=== PATIENT | male | born 1960 | race Caucasian/White ===

== ENCOUNTER 2017-03-30 06:11 | Emergency (ER) | payer BC ==
[~2017-03-30] VITALS: Ht 185.4 cm; Wt 104.9 kg
[~2017-03-30 06:11] MED LIST: ACET-1256 PO; GABA-112 PO; IBUP-1050 PO; NAPR1TAB9 PO
[2017-03-30 06:14] VITALS: TEMP 36.6; Ht 185.4 cm; Wt 104.9 kg
[2017-03-30] MEDS ORDERED: CYCL10TA6 PO (06:32)
[2017-03-30] MEDS ORDERED: PRED10PA4 PO (06:32)
[2017-03-30] MEDS ORDERED: MoRPHine SULFATE 10 MG/ML CARP/VIAL IV PRN (06:45)
[2017-03-30] MEDS ORDERED: ONDANSETRON INJ 2 MG/ML 2 ML VIAL IV PRN (06:45)
--- NOTE | 2017-03-30 06:48 | EMERGENCY ROOM VISIT NOTE ---
History Report prepared by Edson: Maricarmen Law Under the Supervision of: Dr. Parmjit Suarez M.D. First contact with patient: 06:30 Chief Complaint: ARM PAIN Stated Complaint: LT ARM PAIN, BODY ACHES History of Present Illness The patient is a 57 year old male who presents to the Emergency Room with complaints of left shoulder pain that began several days ago. He currently rates his discomfort as an 8/10 in severity. The patient reports that his left shoulder pain radiates into the left side of his upper back. He states that he was seen by his PCP yesterday and was started on Prednisone and Flexeril that did not alleviate his symptoms. The patient states that he could not get comfortable and sleep last evening. He describes his pain as a sharp pain. The patient states that last evening he began noticing left hand tingling. He states that his pain is worsened with movement. The patient additionally reports neck pain, noting that he has arthritis in his neck. He states that he had a neck injury in his 20s. The patient states that he did go fishing last week and casts with his left shoulder. 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 The patient's states that the patient was hiking last Sunday and states that after he fell he heard a pop. She states that since then the patient has been limping and has noticed right calf swelling. The patient denies any fever, chills, lightheadedness, dizziness , chest pain, or shortness of breath. Source of History: patient, spouse/significant other () Onset: several days ago Position: shoulder (left) Symptom Intensity: 8/10 Quality: sharp Timing: worsening (progressively), other (persistent) Modifying Factors (Worsening): movement Associated Symptoms: + neck pain, + back pain, No fevers, No chills, No chest pain, No SOB Review of Systems All systems have been listed, reviewed, and are negative other than those previously mentioned. Please see Additional Medical History Sheet. Past Medical & Surgical Medical Problems: (1) Arthritis (2) H/O multiple allergies Surgical Problems: (1) S/P tonsillectomy Family History Cancer Heart disease Hypertension Social History Smoking Status: Never Smoker Smokeless Tobacco Use: No Alcohol Use: occasionally Marital Status: single Housing Status: lives with significant other Occupation Status: employed Current/Historical Medications Scheduled Cyclobenzaprine Hcl (Flexeril), 10 MG PO BID Prednisone (Prednisone), Unknown Dose PO DIRECTED Scheduled PRN Naproxen (Aleve), 220 MG PO DIRECTED PRN for Pain Oxycodone/Acetaminophen 5MG/325MG (Percocet 5MG/325MG), 1-2 TABLETS PO Q4H PRN for Pain Allergies Coded Allergies: Aspirin (Verified Allergy, Unknown, 03/30/17) Penicillins (Verified Allergy, Unknown, 03/30/17) Physical Exam Vital Signs Date Time Temp Pulse Resp B/P (MAP) Pulse Ox O2 Delivery O2 Flow Rate FiO2 03/30/17 09:34 61 132/82 97 03/30/17 07:48 67 149/89 97 Room Air 03/30/17 06:14 36.6 103 20 143/92 97 Room Air Physical Exam GENERAL: Patient awake, alert, oriented x 3. Patient follows commands. Patient does not appear toxic. Patient is adequately hydrated and well- nourished. SKIN: No erythema, pallor, cyanosis or rash HEENT: Normal head, pupils equal, reactive to light and accommodation. Oral cavity and posterior pharynx appear normal. Neck: Vague tenderness in lower cervical spine into the left trapezius. Without adenopathy, no neck vein distention. LUNGS: Clear to auscultation. No wheezes, no rales, no rhonchi. HEART: No murmurs. No gallops. No rubs EXTREMITIES: Patient has full range of motion, no appreciable numbness in either hand, strength is equal bilaterally. No signs of trauma. No pedal or pretibial edema. Slight tenderness in the right tenderness, no erythema, no increased warmth. No thigh tenderness. NEUROLOGIC: Cranial nerves II-XII within normal limits. No gross motor sensory function deficits. Medical Decision & Procedures ER Provider Diagnostic Interpretation: CT results are interpretations by the radiologist and per my review. CERVICAL SPINE W/O CLINICAL HISTORY: 57 years-old Male presenting with pain left neck back numb left hand. TECHNIQUE: Multidetector CT of the cervical spine was performed without the use of intravenous contrast. IV contrast: None. A dose lowering technique was used consistent with the principles of ALARA (as low as reasonably achievable). COMPARISON: MR from 2006. CT DOSE (mGy.cm): The estimated cumulative dose is 276.56 mGy.cm. 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 Normal cervical lordosis. No acute fracture or subluxation. Mild multilevel degenerative changes with disc osteophyte complexes noted at C4-5 and C5-6. Minimal right osseous neural foraminal narrowing secondary to uncovertebral hypertrophy at C3-4 and C4-5. No osseous spinal canal narrowing. Limited intracranial evaluation within normal limits. Paraspinal soft demonstrate 2 posterior subcutaneous nodules (series 2 images 52 and 57). Minimal subcutaneous fat infiltration along the posterior aspect of the upper back. Lung apices clear. IMPRESSION: 1. No acute osseous injury of the cervical spine. 2. Mild degenerative change. 3. 2 subcutaneous nodules in the posterior soft tissues could represent small lymph nodes. Electronically signed by: Ceferino Govea M.D. 03/30/2017 8:17 AM Dictated Date/Time: 03/30/2017 8:14 AM Medications Administered Medications (Trade) Dose Ordered Sig/Michelle Route Start Time Stop Time Status Last Admin Dose Admin Morphine Sulfate (MoRPHine SULFATE INJ) 8 mg Q1H PRN IV 03/30/17 06:45 03/30/17 10:22 DC 03/30/17 07:19 8 MG Ondansetron HCl (Zofran Inj) 4 mg Q1HWA PRN IV 03/30/17 06:45 03/30/17 10:22 DC 03/30/17 07:19 4 MG Oxycodone/ Acetaminophen (Percocet 5-325mg Tab) 1 tab NOW ONCE PO 03/30/17 09:15 03/30/17 09:16 DC 03/30/17 09:19 1 TAB ECG Indication: back/shoulder pain Rate (beats per minute): 85 Rhythm: normal sinus Findings: no acute ischemic change, prolonged QT ED Course 0631: Past medical records reviewed. The patient was evaluated in room A10. A complete history and physical examination was performed. 0645: Ordered Zofran Inj 4 mg IV, Morphine Sulfate 8 mg IV. 0859: I reevaluated the patient and he is resting comfortably. I discussed the exam findings with him and I discussed the treatment plan. He verbalized complete understanding and agreement. He is ready for discharge shortly. 0915: Ordered Oxycodone/Acetaminophen 1 tab PO. Medical Decision Nurses notes reviewed. Medical history sheet reviewed. Differential diagnosis includes but is not limited to: Cervical radiculopathy, myocardial infarction, ischemia, DVT, right calf strain. History and clinical findings are most consistent with cervical radiculopathy. The patient is currently on prednisone and Flexeril. He will continue those medications. He was given pain medication here. CT as noted above. The patient will be given a prescription for Percocet. I do not believe the patient requires any lab work. The patient has some tenderness to his right calf but no evidence of a DVT or Achilles rupture. The patient is to follow-up with his family physician. Physical therapy may be beneficial in the future. [employer] Drug Monitoring Program Search Results: patient reviewed within database, no issues identified Medication Reconcilliation Current Medication List: was personally reviewed by me Blood Pressure Screening Patient's blood pressure: Elevated blood pressure Blood pressure disposition: Elevated BP felt to be situational, Did not require urgent referral Impression Primary Impression: Cervical radiculopathy Scribe Attestation The scribe's documentation has been prepared under my direction and personally reviewed by me in its entirety. I confirm that the note above accurately reflects all work, treatment, procedures, and medical decision making performed by me. Departure Information Dispostion Home / Self-Care Prescriptions Oxycodone/Acetaminophen 5MG/325MG (PERCOCET 5MG/325MG) Tab 1-2 TABLETS PO Q4H Y for Pain, #20 TAB Prov: Pramjit Suarez M.D. 03/30/17 Referrals Ger Hudson M.D.(LUIS FERNANDO) (PCP) Forms HOME CARE DOCUMENTATION FORM, IMPORTANT VISIT INFORMATION Patient Instructions ED Cervical Radiculopathy, [facility] Additional Instructions 1-2 Percocet every 4 hours as needed for moderate to severe pain. Do not drive or operate machinery while taking Percocet. Continue Flexeril 1 every 8 hours until pain is better. Continue prednisone as prescribed. Follow-up with your family physician within the next 10 days.
--- NOTE | 2017-03-30 08:19 | DIAGNOSTIC IMAGING REPORT ---
CERVICAL SPINE W/O CLINICAL HISTORY: 57 years-old Male presenting with pain left neck back numb left hand. TECHNIQUE: Multidetector CT of the cervical spine was performed without the use of intravenous contrast. IV contrast: None. A dose lowering technique was used consistent with the principles of ALARA (as low as reasonably achievable). COMPARISON: MR from 2006. CT DOSE (mGy.cm): The estimated cumulative dose is 276.56 mGy.cm. 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 Normal cervical lordosis. No acute fracture or subluxation. Mild multilevel degenerative changes with disc osteophyte complexes noted at C4-5 and C5-6. Minimal right osseous neural foraminal narrowing secondary to uncovertebral hypertrophy at C3-4 and C4-5. No osseous spinal canal narrowing. Limited intracranial evaluation within normal limits. Paraspinal soft demonstrate 2 posterior subcutaneous nodules (series 2 images 52 and 57). Minimal subcutaneous fat infiltration along the posterior aspect of the upper back. Lung apices clear. IMPRESSION: 1. No acute osseous injury of the cervical spine. 2. Mild degenerative change. 3. 2 subcutaneous nodules in the posterior soft tissues could represent small lymph nodes. Electronically signed by: Ceferino Govea M.D. 03/30/2017 8:17 AM Dictated Date/Time: 03/30/2017 8:14 AM
[2017-03-30] MEDS ORDERED: OXYCODONE/ACETAMINOPHEN 5-325 TAB PO ONE (09:15)
[2017-03-30] MEDS ORDERED: OXYC-57 PO (09:22)
[2017-03-30 09:34] VITALS: BP 132/82; PULSE 61; O2SAT 97
== END 2017-03-30 09:35 | disposition home or self-care (01) ==
LOC: C.EDB 06:13 → C.EDA 09:35
DX: M54.12 Radiculopathy, cervical region (principal); M19.90 Unspecified osteoarthritis, unspecified site; Z98.890 Other specified postprocedural states; Z88.0 Allergy status to penicillin; Z88.6 Allergy status to analgesic agent; Z80.9 Family history of malignant neoplasm, unspecified; Z82.49 Family history of ischemic heart disease and other diseases of the circulatory system